=== PATIENT | female | born 1950 | race Caucasian/White ===

== ENCOUNTER 2017-11-14 17:34 | Inpatient (IN) | payer MEDICARE ==
[2017-11-14] MEDS ORDERED: Zofran 4 MG/2 ML VIAL IV ONE (18:05)
[2017-11-14] MEDS ORDERED: Sodium Chloride 0.9% 1000 ML 1,000 ML IV STA (18:05)
--- NOTE | 2017-11-14 18:21 | ERPHSYRPT ---
- History of Present Illness Time Seen by Provider: 11/14/17 18:10 Source: patient Exam Limitations: no limitations Patient Subjective Stated Complaint: pt states she has had vomiting and diarrhea for the past 5 days. states she last vomited last pm and had diarrhea last pm. Triage Nursing Assessment: Pt pink, warm, dry. Abdomen obese, bowel sounds present in all 4 quads. pt afebrile. Physician History: Pt has been c/o nausea, vomiting, congestion, cough and diarrhea for 5 days. She felt chills and fever, did not take her temperature, denies bloody or black diarrhea, no abdominal or chest pain, no severe headaches or other complaints. Timing/Duration: day(s) (5) Severity: mild Modifying Factors: Improves With: nothing Associated Symptoms: nausea, vomiting, cough, fever, loss of appetite Allergies/Adverse Reactions: Iodinated Contrast- Oral and IV Dye Allergy (Verified 11/14/17 17:57) Penicillins Allergy (Verified 11/14/17 17:57) Home Medications: Fluticasone Propionate [Flonase NASAL] 1 spray INTRANASAL DAILY 11/14/17 [ History] Latanoprost [Latanoprost] 1 drop INTRAOP BID 11/14/17 [History] Lisinopril/Hydrochlorothiazide [Lisinopril-Hctz 20-12.5 mg Tab] 1 tab PO BID [History] Hx Tetanus, Diphtheria Vaccination/Date Given: Yes (unknown) Hx Influenza Vaccination/Date Given: Yes Hx Pneumococcal Vaccination/Date Given: Yes Immunizations Up to Date: Yes - Review of Systems Constitutional: Fever, Chills Respiratory: Cough Abdominal/Gastrointestinal: Nausea, Vomiting, Diarrhea All Other Systems: Reviewed and Negative - Past Medical History Pertinent Past Medical History: Yes Cardiac History: Hypertension - Past Surgical History Past Surgical History: Yes Gastrointestinal: Cholecystectomy Female Surgical History: Hysterectomy, Other - Social History Smoking Status: Never smoker Exposure to second hand smoke: No Drug Use: none Patient Lives Alone: No - Female History Hx Now: No - Nursing Vital Signs Nursing Vital Signs: Initial Vital Signs Temperature 98.4 F 11/14/17 17:52 Pulse Rate 99 H 11/14/17 17:52 Respiratory Rate 20 11/14/17 17:52 Blood Pressure 139/82 11/14/17 17:52 O2 Sat by Pulse Oximetry 99 01/18/18 17:52 Pain Scale Pain Intensity 0 - Physical Exam General Appearance: no apparent distress Eye Exam: eyes nml inspection Ears, Nose, Throat Exam: normal ENT inspection, pharynx normal Neck Exam: normal inspection, non-tender, supple Respiratory Exam: normal breath sounds, lungs clear, airway intact, No chest tenderness Cardiovascular Exam: regular rate/rhythm, normal heart sounds, normal peripheral pulses, No murmur Gastrointestinal/Abdomen Exam: soft, normal bowel sounds, No tenderness, No distention, No mass, No guarding Back Exam: normal inspection, No CVA tenderness Extremity Exam: normal inspection Neurologic Exam: alert, oriented x 3 Skin Exam: normal color, warm, dry, No rash Lymphatic Exam: No adenopathy SpO2 Interpretation: normal SpO2: 99 Oxygen Delivery: Room Air - Radiology Exams Chest X-ray Interpretation: Interpreted by me, Negative Abdomen X-ray Interpretation: Interpreted by me, Negative Ordered Tests: Active Orders 24 hr Category Date Time Status Up With Assistance ROUTINE Activity 11/14/17 19:59 Ordered Admission/Status Order ROUTINE Care 11/14/17 19:59 Ordered Code Status Order ROUTINE Care 11/14/17 19:59 Ordered IV Care Q6H Care 11/14/17 19:59 Ordered IV Insertion STAT Care 11/14/17 18:05 Active cath [Cath for Specimen-Straight] STAT Care 11/14/17 18:44 Active Clear Liquid Diet 11/14/17 Breakfast Ordered OBSTR/ACUTE ABDOMEN SERIES Stat Exams 11/14/17 18:07 Taken BMP AM.LAB Lab 11/15/17 04:00 Ordered CBC W DIFF AM.LAB Lab 11/15/17 04:00 Ordered CBC W DIFF Stat Lab 11/14/17 18:19 Completed CMP Stat Lab 11/14/17 18:19 Completed LIPASE Stat Lab 11/14/17 18:19 Completed Lactic Acid Stat Lab 11/14/17 18:36 Completed Occult Blood,Stool Other Stat Lab 11/14/17 18:05 Uncollected UA W/ MICROSCOPIC Stat Lab 11/14/17 18:45 Completed Medication Summary Discontinued Medications Generic Name Dose Route Start Last Admin Trade Name Freq PRN Reason Stop Dose Admin Sodium Chloride 1,000 mls @ 999 mls/hr 11/14/17 18:05 11/14/17 18:35 Sodium Chloride 0.9% 1000 Ml IV 11/14/17 19:05 999 mls/hr .Q1H1M STA Administration Sodium Chloride Confirm 11/14/17 18:34 Sodium Chloride 0.9% 1000 Ml Administered 11/14/17 18:35 Dose 1,000 mls @ ud .ROUTE .STK-MED ONE Metronidazole 500 mg 11/14/17 19:51 11/14/17 19:55 Flagyl 500 Mg PO 11/14/17 19:52 500 mg STAT ONE Administration Metronidazole Confirm 11/14/17 19:54 Flagyl 500 Mg Administered 11/14/17 19:55 Dose 500 mg .ROUTE .STK-MED ONE Ondansetron HCl 4 mg 11/14/17 18:05 11/14/17 18:35 Zofran 4 Mg/2 Ml Vial IV 11/14/17 18:06 4 mg STAT ONE Administration Ondansetron HCl Confirm 11/14/17 18:34 Zofran 4 Mg/2 Ml Vial Administered 11/14/17 18:35 Dose 4 mg .ROUTE .STK-MED ONE Lab/Rad Data: Laboratory Result Diagrams 11/14/17 18:19 11/14/17 18:19 Laboratory Results 11/14/17 11/14/17 11/14/17 Range/Units 18:45 18:36 18:19 WBC (4.0-10.5) K/mm3 RBC (4.1-5.4) M/mm3 Hgb (12.0-16.0) gm/dl Hct (35-47) % MCV (78-100) fl MCH (26-32) pg MCHC (32-36) g/dl RDW (11.5-14.0) % Plt Count (150-450) K/mm3 MPV (6-9.5) fl Gran % (36.0-66.0) % Lymphocytes % (24.0-44.0) % Monocytes % (0.0-12.0) % Eosinophils % (0.00-5.0) % Basophils % (0.0-0.4) % Basophils # (0-0.4) Sodium (136-145) mEq/L Potassium (3.5-5.1) mEq/L Chloride (98-107) mEq/L Carbon Dioxide (21-32) mEq/L Anion Gap (5-15) MEQ/L BUN (9-20) mg/dL Creatinine (0.55-1.30) mg/dl Estimated GFR ML/MIN Glucose (70-110) MG/DL Lactic Acid 1.4 (0.4-2.0) Calcium (8.5-10.1) mg/dL Total Bilirubin (0.2-1.0) mg/dL AST (15-37) U/L ALT (12-78) U/L Alkaline Phosphatase (46-116) U/L Serum Total Protein (6.4-8.2) gm/dL Albumin (3.4-5.0) g/dL Lipase (73-393) U/L Ur Collection Type CATH Urine Color YELLOW (YELLOW) Urine Appearance CLEAR (CLEAR) Urine pH 5.0 (5-6) Ur Specific [place] 1.020 (1.005-1.025) Urine Protein TRACE (Negative) Urine Ketones NEGATIVE (NEGATIVE) Urine Blood NEGATIVE (0-5) Onofre/ul Urine Nitrite NEGATIVE (NEGATIVE) Urine Bilirubin NEGATIVE (NEGATIVE) Urine Urobilinogen NORMAL (0-1) mg/dL Ur Leukocyte Esterase NEGATIVE (NEGATIVE) Urine Microscopic WBC 0-2 (0-5) /HPF Ur Epithelial Cells RARE (FEW) /HPF Urine Bacteria FEW (NEGATIVE) /HPF Hyaline Casts 0-2 (0-2) /LPF Urine Culture Reflexed NO (NO) Urine Glucose NEGATIVE (NEGATIVE) mg/dL Influenza Type A Ag NEGATIVE (NEGATIVE) Influenza Type B Ag NEGATIVE (NEGATIVE) RSV (PCR) NEGATIVE (Negative) Specimen Received 11-14-17 0671 11/14/17 11/14/17 Range/Units 18:19 18:19 WBC 10.2 (4.0-10.5) K/mm3 RBC 3.51 L (4.1-5.4) M/mm3 Hgb 10.5 L (12.0-16.0) gm/dl Hct 33.0 L (35-47) % MCV 94.0 (78-100) fl MCH 29.9 (26-32) pg MCHC 31.8 L (32-36) g/dl RDW 12.9 (11.5-14.0) % Plt Count 317 (150-450) K/mm3 MPV 11.4 H (6-9.5) fl Gran % 82.8 H (36.0-66.0) % Lymphocytes % 9.3 L (24.0-44.0) % Monocytes % 7.1 (0.0-12.0) % Eosinophils % 0.6 (0.00-5.0) % Basophils % 0.2 (0.0-0.4) % Basophils # 0.02 (0-0.4) Sodium 140 (136-145) mEq/L Potassium 4.5 (3.5-5.1) mEq/L Chloride 108 H (98-107) mEq/L Carbon Dioxide 17.1 L (21-32) mEq/L Anion Gap 19.1 H (5-15) MEQ/L BUN 84 H (9-20) mg/dL Creatinine 3.25 H (0.55-1.30) mg/dl Estimated GFR 15 ML/MIN Glucose 126 H (70-110) MG/DL Lactic Acid (0.4-2.0) Calcium 11.1 H (8.5-10.1) mg/dL Total Bilirubin 0.50 (0.2-1.0) mg/dL AST 14 L (15-37) U/L ALT 13 (12-78) U/L Alkaline Phosphatase 66 (46-116) U/L Serum Total Protein 7.8 (6.4-8.2) gm/dL Albumin 3.9 (3.4-5.0) g/dL Lipase 234 (73-393) U/L Ur Collection Type Urine Color (YELLOW) Urine Appearance (CLEAR) Urine pH (5-6) Ur Specific [place] (1.005-1.025) Urine Protein (Negative) Urine Ketones (NEGATIVE) Urine Blood (0-5) Onofre/ul Urine Nitrite (NEGATIVE) Urine Bilirubin (NEGATIVE) Urine Urobilinogen (0-1) mg/dL Ur Leukocyte Esterase (NEGATIVE) Urine Microscopic WBC (0-5) /HPF Ur Epithelial Cells (FEW) /HPF Urine Bacteria (NEGATIVE) /HPF Hyaline Casts (0-2) /LPF Urine Culture Reflexed (NO) Urine Glucose (NEGATIVE) mg/dL Influenza Type A Ag (NEGATIVE) Influenza Type B Ag (NEGATIVE) RSV (PCR) (Negative) Specimen Received - Progress Progress: improved Progress Note: 11/14/17 20:02 Pt has been stable, afebrile, no fever or vomiting, denies any pain, comfortable. X ray and lab results discussed, called Dr Matthews, discussed our results and patient's current condition, he agreed to admit her for further iv fluids, and treatment, patient and her family informed, they agreed. - Departure Time of Disposition: 20:03 Departure Disposition: In-patient Admission Clinical Impression: Acute renal failure (ARF) Qualifiers: Acute renal failure type: unspecified Qualified Code(s): N17.9 - Acute kidney failure, unspecified Condition: Stable Critical Care Time: Yes Critical Care Time(excluding separately billable procedures): 30-74 minutes ( Kidney failure, hemodynamically stable.) Referrals: ZULMA LOGAN NP [Primary Care Provider] -
[2017-11-14 18:23] LABS: BASOPHIL % 0.2 % (0.0-0.4); Basophil (Absolute #) 0.02 (0-0.4); Eosinophil % 0.6 % (0.00-5.0); Eosinophil (Absolute #) 0.06 (0-0.5); Granulocyte Absolute (ANC) 8.42 (1.4-6.9); Granulocytes % 82.8 % (36.0-66.0); Hemoglobin 10.5 gm/dl (12.0-16.0); Lymphocyte (Absolute #) 0.94 (1.0-4.6); Lymphocytes % 9.3 % (24.0-44.0); Mean Corpuscular Hemoglobin 29.9 pg (26-32); Mean Corpuscular Hgb Concent. 31.8 g/dl (32-36); Mean Platelet Volume 11.4 fl (6-9.5); Monocyte (Absolute #) 0.72 (0.0-1.3); Monocytes % 7.1 % (0.0-12.0); Platelet Count 317 K/mm3 (150-450); Red Blood Count 3.51 M/mm3 (4.1-5.4); Red Cell Distribution Width 12.9 % (11.5-14.0); White Blood Count 10.2 K/mm3 (4.0-10.5)
[2017-11-14] MEDS ORDERED: Zofran 4 MG/2 ML VIAL ONE (18:34)
[2017-11-14] MEDS ORDERED: Sodium Chloride 0.9% 1000 ML 1,000 ML ONE (18:34)
[2017-11-14 18:43] LABS: ALBUMIN 3.9 g/dL (3.4-5.0); ANION GAP 19.1 MEQ/L (5-15); BILIRUBIN,TOTAL 0.5 mg/dL (0.2-1.0); Calcium 11.1 mg/dL (8.5-10.1); Carbon Dioxide 17.1 mEq/L (21-32); Creatinine 1 3.25 mg/dl (0.55-1.30); Potassium 4.5 mEq/L (3.5-5.1); Total Protein 7.8 gm/dL (6.4-8.2)
[2017-11-14 19:01] LABS: Appearance CLEAR (CLEAR); Bilirubin NEGATIVE (NEGATIVE); Blood NEGATIVE Ery/ul (0-5); Glucose NEGATIVE (NEGATIVE); Ketones NEGATIVE (NEGATIVE); Leukocyte Esterase NEGATIVE (NEGATIVE); Nitrite NEGATIVE (NEGATIVE); Protein,Urine Dip TRACE (Negative); Urobilinogen NORMAL mg/dL (0-1); WBC 0-2 /HPF (0-5)
[2017-11-14 19:02] LABS: Bacteria FEW /HPF (NEGATIVE); Epithelial Cells RARE /HPF (FEW); Hyaline Casts 0-2 /LPF (0-2)
[2017-11-14 19:25] LABS: INFLUENZA A NEGATIVE (NEGATIVE); INFLUENZA B NEGATIVE (NEGATIVE); RESPIRATORY SYNCTIAL VIRUS NEGATIVE (Negative)
[2017-11-14] MEDS ORDERED: Flagyl 500 MG PO ONE (19:51)
[2017-11-14] MEDS ORDERED: Flagyl 500 MG ONE (19:54)
[2017-11-14] MEDS ORDERED: Zofran 4 MG/2 ML VIAL IV PRN (19:59)
[2017-11-14] MEDS ORDERED: Xalatan OP SCH (22:00)
[2017-11-14] MEDS ORDERED: COSOPT OPHTHALMIC 10 ML OP SCH (22:00)
[2017-11-14] MEDS: Sodium Chloride 0.9% 1000 ML 1,000 ML IV SCH (22:55)
[2017-11-14] MEDS ORDERED: TIMOPTIC 0.5% 5 ML OPHTHALMIC OP ONE (22:58)
[2017-11-15 01:58] LABS: 027 TOX PROD PRESUMPTIVE NEGATIVE (NEGATIVE); TOXIGENIC C. DIFF ORG NEGATIVE (NEGATIVE)
[2017-11-15 06:17] LABS: BASOPHIL % 0.2 % (0.0-0.4); Basophil (Absolute #) 0.02 (0-0.4); Eosinophil % 0.8 % (0.00-5.0); Eosinophil (Absolute #) 0.08 (0-0.5); Granulocyte Absolute (ANC) 7.84 (1.4-6.9); Granulocytes % 78.8 % (36.0-66.0); Hematocrit 29.9 % (35-47); Hemoglobin 9.4 gm/dl (12.0-16.0); Lymphocyte (Absolute #) 1.11 (1.0-4.6); Lymphocytes % 11.2 % (24.0-44.0); Mean Cell Volume 95.2 fl (78-100); Mean Corpuscular Hemoglobin 29.9 pg (26-32); Mean Corpuscular Hgb Concent. 31.4 g/dl (32-36); Mean Platelet Volume 11.5 fl (6-9.5); Platelet Count 259 K/mm3 (150-450); Red Blood Count 3.14 M/mm3 (4.1-5.4)
[2017-11-15 07:01] LABS: ANION GAP 17.9 MEQ/L (5-15); Calcium 10.6 mg/dL (8.5-10.1); Carbon Dioxide 17.7 mEq/L (21-32); Creatinine 1 3.06 mg/dl (0.55-1.30)
[2017-11-15] MEDS ORDERED: COSOPT OPHTHALMIC 10 ML OP SCH (08:00)
[2017-11-15] MEDS ORDERED: DESYREL 50 MG PO PRN (08:10)
[2017-11-15] MEDS: Sodium Chloride 0.9% 1000 ML 1,000 ML IV SCH (08:11)
--- NOTE | 2017-11-15 08:15 | PCM.HP ---
History of Present Illness - Chief Complaint Chief Complaint: vomiting, acute renal failure History of Present Illness: is a 67 year old female who reported to the ER with persistent nausea, vomiting and diarrhea for the last 5 days. She denies fever, no recent antibiotic use, no abdominal pain. She was found to have acute renal failure in the ER, believed to be related to dehydration. No prior renal issues. She also complains of right foot pain today, having problems walking due to foot pain. Stepped on something hard in her home a few days ago. No erythema, no calf pain , hurts to bear weight. - Review of Systems Constitutional: No Fever, No Chills Respiratory: No Cough, No Short Of Breath Cardiac: No Chest Pain, No Edema, No Syncope Abdominal/Gastrointestinal: Nausea, Vomiting, Diarrhea, No Abdominal Pain Genitourinary Symptoms: No Dysuria Skin: No Rash All Other Systems: Reviewed and Negative Medications & Allergies Home Medications: Home Medication List Fluticasone Propionate [Flonase NASAL] 1 spray INTRANASAL DAILY 11/14/17 [ History Confirmed 11/14/17] Furosemide [Furosemide] 40 mg PO DAILY 11/14/17 [History Confirmed 11/14/17] Latanoprost [Latanoprost] 1 drop INTRAOP HS 11/14/17 [History Confirmed 11/15/17 ] Lisinopril/Hydrochlorothiazide [Lisinopril-Hctz 20-12.5 mg Tab] 1 tab PO BID [History Confirmed 11/14/17] Timolol Maleate/Dorzolam HCl [Cosopt Ophthalmic 10 ml] 1 drop INTRAOP BID 11/14/17 [History Confirmed 11/14/17] Allergies/Adverse Reactions: Allergies Allergy/AdvReac Type Severity Reaction Status Date / Time Iodinated Contrast- Oral and Allergy Verified 11/14/17 17:57 IV Dye Penicillins Allergy Verified 11/14/17 17:57 - Past Medical History Past Medical History: Yes Neurological History: No Pertinent History ENT History: Glaucoma Cardiac History: Hypertension Respiratory History: No Pertinent History Endocrine Medical History: No Pertinent History Musculoskelatal History: No Pertinent History GI Medical History: No Pertinent History History: No Pertinent History Pyscho-Social History: No Pertinent History Reproductive Disorders: No Pertinent History - Female History Are you now?: No - Past Surgical History Past Surgical History: Yes Cardiac History: No Pertinent History Respiratory Surgery: No Pertinent History GI Surgical History: Appendectomy, Cholecystectomy Musculskeletal Surgical Hx: No Pertinent History Female Surgical History: Hysterectomy, Other Other Surgical History: exploratory surgery appendix leaking - Social History Smoking Status: Never smoker Exposure to second hand smoke: No Alcohol: None Drug Use: none - Physical Exam Vital Signs: Vital Signs - 24 hr Temp Pulse Resp BP Pulse Ox 11/15/17 08:00 20 11/15/17 07:49 98 F 74 20 120/64 96 11/15/17 04:00 98.4 F 76 17 121/58 99 11/14/17 22:02 97.8 F 75 18 129/62 99 11/14/17 20:04 99 11/14/17 20:03 79 18 108/61 96 11/14/17 18:45 78 18 125/74 98 11/14/17 17:52 98.4 F 99 H 20 139/82 99 General Appearance: no apparent distress, alert Neurologic Exam: alert, oriented x 3 Eye Exam: PERRL/EOMI Neck Exam: normal inspection, non-tender, supple, full range of motion Respiratory Exam: normal breath sounds, lungs clear, No respiratory distress Cardiovascular Exam: regular rate/rhythm, normal heart sounds, normal peripheral pulses Gastrointestinal/Abdomen Exam: soft, normal bowel sounds, No tenderness, No mass Extremity Exam: normal inspection, normal range of motion, pelvis stable Skin Exam: normal color, warm, dry, No rash Results - Labs Lab/Micro Results: Lab Results-Last 24 Hours 11/14/17 11/14/17 11/15/17 Range/Units 23:25 23:30 05:30 WBC 10.0 (4.0-10.5) K/mm3 RBC 3.14 L (4.1-5.4) M/mm3 Hgb 9.4 L (12.0-16.0) gm/dl Hct 29.9 L (35-47) % MCV 95.2 (78-100) fl MCH 29.9 (26-32) pg MCHC 31.4 L (32-36) g/dl RDW 13.0 (11.5-14.0) % Plt Count 259 (150-450) K/mm3 MPV 11.5 H (6-9.5) fl Gran % 78.8 H (36.0-66.0) % Lymphocytes % 11.2 L (24.0-44.0) % Monocytes % 9.0 (0.0-12.0) % Eosinophils % 0.8 (0.00-5.0) % Basophils % 0.2 (0.0-0.4) % Basophils # 0.02 (0-0.4) Sodium (136-145) mEq/L Potassium (3.5-5.1) mEq/L Chloride (98-107) mEq/L Carbon Dioxide (21-32) mEq/L Anion Gap (5-15) MEQ/L BUN (9-20) mg/dL Creatinine (0.55-1.30) mg/dl Estimated GFR ML/MIN Glucose (70-110) MG/DL Calcium (8.5-10.1) mg/dL Stool Occult Blood NEGATIVE (Negative) Stl C. diff Tox B Gene NEGATIVE (NEGATIVE) C.difficile 027-NAP1-B1 PRESUMPTIVE NEGATIVE (NEGATIVE) 11/15/17 Range/Units 05:30 WBC (4.0-10.5) K/mm3 RBC (4.1-5.4) M/mm3 Hgb (12.0-16.0) gm/dl Hct (35-47) % MCV (78-100) fl MCH (26-32) pg MCHC (32-36) g/dl RDW (11.5-14.0) % Plt Count (150-450) K/mm3 MPV (6-9.5) fl Gran % (36.0-66.0) % Lymphocytes % (24.0-44.0) % Monocytes % (0.0-12.0) % Eosinophils % (0.00-5.0) % Basophils % (0.0-0.4) % Basophils # (0-0.4) Sodium 142 (136-145) mEq/L Potassium 4.0 (3.5-5.1) mEq/L Chloride 110 H (98-107) mEq/L Carbon Dioxide 17.7 L (21-32) mEq/L Anion Gap 17.9 H (5-15) MEQ/L BUN 77 H (9-20) mg/dL Creatinine 3.06 H (0.55-1.30) mg/dl Estimated GFR 16 ML/MIN Glucose 104 (70-110) MG/DL Calcium 10.6 H (8.5-10.1) mg/dL Stool Occult Blood (Negative) Stl C. diff Tox B Gene (NEGATIVE) C.difficile 027-NAP1-B1 (NEGATIVE) - Radiology Impressions Radiology Exams & Impressions: Radiology Procedures Category Date Time Status FOOT (2 VIEWS) Routine Exams 11/15/17 Ordered Assessment/Plan (1) Acute renal failure (ARF) Current Visit: Yes Status: Acute Qualifiers: Acute renal failure type: unspecified Qualified Code(s): N17.9 - Acute kidney failure, unspecified Assessment & Plan: minimal improvement with fluids overnight, hasn't been her long (2) Nausea and vomiting Current Visit: Yes Status: Acute Assessment & Plan: resolved with fluids and anti-emetics at this time Code(s): R11.2 - NAUSEA WITH VOMITING, UNSPECIFIED (3) Diarrhea Current Visit: Yes Status: Acute Assessment & Plan: stool studies pending. Code(s): R19.7 - DIARRHEA, UNSPECIFIED (4) Foot pain, right Current Visit: Yes Status: Acute Code(s): M79.671 - PAIN IN RIGHT FOOT
--- NOTE | 2017-11-15 08:39 | XRAY ---
Indication: Pain 1 week. No known injury. Comparison: None AP and weightbearing right foot demonstrates mild osteopenia, small proximal fifth metatarsal bone cyst, and small plantar heel spur. No acute fracture, dislocation, or pes planus.
--- NOTE | 2017-11-15 08:44 | XRAY ---
Indication: Vomiting, diarrhea, and flu symptoms. Comparison: None 2 views of the abdomen nonacute and nonobstructed. Solid organs unremarkable. Osseous structures intact with mild diffuse degenerative spondylosis. Single frontal chest demonstrates normal heart and lungs. Bony thorax intact with minimal scoliosis. Impression: Negative abdomen. Nonacute one view chest.
[2017-11-15] MEDS: Pepcid 20 MG VIAL IV SCH ×2 (08:51→21:46)
[2017-11-15] MEDS: Flonase NASAL NS SCH (09:08)
[2017-11-15] MEDS ORDERED: IMODIUM 2 MG PO PRN (13:32)
[2017-11-15] MEDS: NORCO 5/325 MG PO PRN ×2 (13:47→21:53)
[2017-11-15] MEDS: PATIENT OWN MEDICATION OP SCH ×2 (17:57→21:49)
[2017-11-15] MEDS ORDERED: Xalatan OP SCH (22:00)
[2017-11-16] MEDS: NORCO 5/325 MG PO PRN ×3 (03:14→17:53)
[2017-11-16] MEDS: Sodium Chloride 0.9% 1000 ML 1,000 ML IV SCH (03:15)
[2017-11-16 06:13] LABS: BASOPHIL % 0.3 % (0.0-0.4); Basophil (Absolute #) 0.02 (0-0.4); Eosinophil % 1.6 % (0.00-5.0); Eosinophil (Absolute #) 0.11 (0-0.5); Granulocyte Absolute (ANC) 5.03 (1.4-6.9); Granulocytes % 72.9 % (36.0-66.0); Hematocrit 27.6 % (35-47); Hemoglobin 8.6 gm/dl (12.0-16.0); Lymphocyte (Absolute #) 1.11 (1.0-4.6); Lymphocytes % 16.1 % (24.0-44.0); Mean Cell Volume 95.8 fl (78-100); Mean Corpuscular Hgb Concent. 31.2 g/dl (32-36); Mean Platelet Volume 11.2 fl (6-9.5); Monocyte (Absolute #) 0.63 (0.0-1.3); Monocytes % 9.1 % (0.0-12.0); Platelet Count 220 K/mm3 (150-450); Red Blood Count 2.88 M/mm3 (4.1-5.4); White Blood Count 6.9 K/mm3 (4.0-10.5)
[2017-11-16 06:26] LABS: Mean Corpuscular Hemoglobin 29.8 pg (26-32)
[2017-11-16 07:03] LABS: Calcium 10.2 mg/dL (8.5-10.1); Carbon Dioxide 18.4 mEq/L (21-32); Creatinine 1 2.55 mg/dl (0.55-1.30); Potassium 3.7 mEq/L (3.5-5.1)
[2017-11-16] MEDS: PATIENT OWN MEDICATION OP SCH ×3 (07:59→22:06)
[2017-11-16] MEDS: Pepcid 20 MG VIAL IV SCH ×2 (09:18→21:54)
[2017-11-16] MEDS: Flonase NASAL NS SCH (09:19)
[2017-11-16] MEDS ORDERED: Sodium Chloride 0.9% 1000 ML 1,000 ML IV STA (12:57)
--- NOTE | 2017-11-16 14:55 | PCM.NOTE ---
Date and Time: 11/16/17 1452 Subjective Assessment: No diarrhea this morning. Having some nausea. Tolerating CLD. Denies abd pain. Has been urinating. - Review of Systems Constitutional: No Fever Abdominal/Gastrointestinal: Nausea, No Abdominal Pain, No Vomiting, No Diarrhea Objective Exam General Appearance: no apparent distress, alert, obese Neurologic Exam: oriented x 3, cooperative Skin Exam: normal color, warm, dry, No rash Respiratory Exam: normal breath sounds, No crackles/rales, No rhonchi, No wheezing Cardiovascular Exam: regular rate/rhythm, other (heart sounds distant) Gastrointestinal/Abdomen Exam: soft, normal bowel sounds, No tenderness, No distention, No mass, No guarding, No rebound Extremity Exam: other (RLE edematous generally, ttp generalized. R great toe mild erythema.) OBJECTIVE DATA Vital Signs: Vital Signs - 24 hr Temp Pulse Resp BP Pulse Ox 11/16/17 12:00 97.6 F 68 20 132/63 100 11/16/17 07:57 98.2 F 73 24 127/59 99 11/16/17 07:55 20 11/16/17 04:00 98.6 F 69 24 116/59 99 11/15/17 23:54 98.1 F 69 18 110/54 100 11/15/17 20:00 97.9 F 68 20 90/50 99 11/15/17 15:52 18 11/15/17 15:28 97.6 F 78 18 118/67 97 Pain Assessment - Last Documented Pain Intensity 10 Pain Scale Used 0-10 Pain Scale Intake and Output: Intake & Output 11/14/17 11/15/17 11/16/17 11/17/17 11:59 11:59 11:59 11:59 Intake Total 1286 5164 720 Output Total 650 2000 Balance 636 3164 720 Weight 130 kg 130 kg Lab Results: Lab Results-Last 24 Hours 11/16/17 11/16/17 Range/Units 05:50 05:50 WBC 6.9 (4.0-10.5) K/mm3 RBC 2.88 L (4.1-5.4) M/mm3 Hgb 8.6 L (12.0-16.0) gm/dl Hct 27.6 L (35-47) % MCV 95.8 (78-100) fl MCH 29.8 (26-32) pg MCHC 31.2 L (32-36) g/dl RDW 13.0 (11.5-14.0) % Plt Count 220 (150-450) K/mm3 MPV 11.2 H (6-9.5) fl Gran % 72.9 H (36.0-66.0) % Lymphocytes % 16.1 L (24.0-44.0) % Monocytes % 9.1 (0.0-12.0) % Eosinophils % 1.6 (0.00-5.0) % Basophils % 0.3 (0.0-0.4) % Basophils # 0.02 (0-0.4) Sodium 142 (136-145) mEq/L Potassium 3.7 (3.5-5.1) mEq/L Chloride 113 H (98-107) mEq/L Carbon Dioxide 18.4 L (21-32) mEq/L Anion Gap 14.0 (5-15) MEQ/L BUN 62 H (9-20) mg/dL Creatinine 2.55 H (0.55-1.30) mg/dl Estimated GFR 20 ML/MIN Glucose 101 (70-110) MG/DL Calcium 10.2 H (8.5-10.1) mg/dL Radiology Exams: Radiology Procedures Category Date Time Status FOOT (2 VIEWS) Routine Exams 11/15/17 08:30 Completed Assessment/Plan (1) Acute renal failure (ARF) Current Visit: Yes Status: Acute Qualifiers: Acute renal failure type: unspecified Qualified Code(s): N17.9 - Acute kidney failure, unspecified Assessment & Plan: some improvement this morning. Will go ahead with NS bolus now and in 4 hours and will recheck labs in a.m. If no appreciable improvement will consult nephrology then. (2) Dehydration Current Visit: Yes Status: Acute Code(s): E86.0 - DEHYDRATION (3) Diarrhea Current Visit: Yes Status: Acute Assessment & Plan: shira had some gastroenteritis but no diarrhea yet today. Code(s): R19.7 - DIARRHEA, UNSPECIFIED (4) Foot pain, right Current Visit: Yes Status: Acute Assessment & Plan: check uric acid level; her dad had gout. Code(s): M79.671 - PAIN IN RIGHT FOOT (5) Nausea and vomiting Current Visit: Yes Status: Acute Qualifiers: Vomiting type: unspecified Vomiting Intractability: non-intractable Qualified Code(s): R11.2 - Nausea with vomiting, unspecified Assessment & Plan: nausea is intermittent Code(s): R11.2 - NAUSEA WITH VOMITING, UNSPECIFIED
[2017-11-16] MEDS ORDERED: PHARMACY DOSING REQUEST MC ONE (17:57)
[2017-11-16] MEDS ORDERED: ENOXAPARIN SODIUM SQ ONE (18:26)
[2017-11-17] MEDS: Sodium Chloride 0.9% 1000 ML 1,000 ML IV SCH ×3 (00:57→22:12)
[2017-11-17] MEDS: NORCO 5/325 MG PO PRN ×3 (03:39→22:11)
[2017-11-17] MEDS: Pepcid 20 MG VIAL IV SCH ×2 (08:39→22:12)
[2017-11-17] MEDS: ENOXAPARIN SODIUM SQ SCH (08:40)
[2017-11-17] MEDS: PATIENT OWN MEDICATION OP SCH ×3 (08:42→22:08)
[2017-11-17] MEDS: Flonase NASAL NS SCH (08:42)
[2017-11-17] MEDS: DELTASONE 20 MG PO SCH ×2 (13:29→22:19)
[2017-11-17 14:14] LABS: ANION GAP 14.2 MEQ/L (5-15); Calcium 9.8 mg/dL (8.5-10.1); Carbon Dioxide 18.4 mEq/L (21-32); Creatinine 1 2.18 mg/dl (0.55-1.30); Potassium 3.8 mEq/L (3.5-5.1)
[2017-11-17 14:20] LABS: BASOPHIL % 0.1 % (0.0-0.4); Basophil (Absolute #) 0.01 (0-0.4); Eosinophil % 1.3 % (0.00-5.0); Eosinophil (Absolute #) 0.09 (0-0.5); Granulocyte Absolute (ANC) 5.57 (1.4-6.9); Granulocytes % 79.1 % (36.0-66.0); Hematocrit 27.5 % (35-47); Hemoglobin 8.3 gm/dl (12.0-16.0); Lymphocyte (Absolute #) 0.68 (1.0-4.6); Lymphocytes % 9.6 % (24.0-44.0); Mean Cell Volume 96.8 fl (78-100); Mean Corpuscular Hemoglobin 29.2 pg (26-32); Mean Corpuscular Hgb Concent. 30.2 g/dl (32-36); Mean Platelet Volume 11.5 fl (6-9.5); Monocytes % 9.9 % (0.0-12.0); Platelet Count 221 K/mm3 (150-450); Red Blood Count 2.84 M/mm3 (4.1-5.4); Red Cell Distribution Width 13.1 % (11.5-14.0); White Blood Count 7.1 K/mm3 (4.0-10.5)
--- NOTE | 2017-11-17 15:49 | PCM.NOTE ---
Date and Time: 11/17/17 1544 Subjective Assessment: Feeling better, having a little nausea but no diarrhea. Her uric acid was elevated. - Review of Systems Constitutional: No Fever Abdominal/Gastrointestinal: Nausea Musculoskeletal: Joint Pain (R great toe) Objective Exam General Appearance: no apparent distress, alert, obese Neurologic Exam: oriented x 3, cooperative Skin Exam: normal color, warm, dry, No rash Respiratory Exam: normal breath sounds, lungs clear, No crackles/rales, No rhonchi, No wheezing Cardiovascular Exam: regular rate/rhythm, normal heart sounds, No murmur Extremity Exam: other (R great toe mildly edematous and erythematous) OBJECTIVE DATA Vital Signs: Vital Signs - 24 hr Temp Pulse Resp BP Pulse Ox 11/17/17 12:00 98.3 F 75 20 116/56 100 11/17/17 08:00 97.7 F 92 H 18 140/72 95 11/17/17 04:00 22 11/17/17 03:39 98.3 F 87 22 118/55 100 11/17/17 00:00 98.3 F 77 20 124/64 99 11/16/17 20:00 98.4 F 73 20 97/55 99 11/16/17 16:00 98.1 F 80 22 123/68 100 Pain Assessment - Last Documented Pain Intensity 8 Pain Scale Used 0-10 Pain Scale Intake and Output: Intake & Output 11/15/17 11/16/17 11/17/17 11/18/17 11:59 11:59 11:59 11:59 Intake Total 1286 5164 5773 240 Output Total 650 2000 1600 300 Balance 636 3164 4173 -60 Weight 130 kg 130 kg Lab Results: Lab Results-Last 24 Hours 11/16/17 11/17/17 11/17/17 Range/Units 05:30 13:45 13:45 WBC 7.1 (4.0-10.5) K/mm3 RBC 2.84 L (4.1-5.4) M/mm3 Hgb 8.3 L (12.0-16.0) gm/dl Hct 27.5 L (35-47) % MCV 96.8 (78-100) fl MCH 29.2 (26-32) pg MCHC 30.2 L (32-36) g/dl RDW 13.1 (11.5-14.0) % Plt Count 221 (150-450) K/mm3 MPV 11.5 H (6-9.5) fl Gran % 79.1 H (36.0-66.0) % Lymphocytes % 9.6 L (24.0-44.0) % Monocytes % 9.9 (0.0-12.0) % Eosinophils % 1.3 (0.00-5.0) % Basophils % 0.1 (0.0-0.4) % Basophils # 0.01 (0-0.4) Sodium 141 (136-145) mEq/L Potassium 3.8 (3.5-5.1) mEq/L Chloride 112 H (98-107) mEq/L Carbon Dioxide 18.4 L (21-32) mEq/L Anion Gap 14.2 (5-15) MEQ/L BUN 42 H (9-20) mg/dL Creatinine 2.18 H (0.55-1.30) mg/dl Estimated GFR 24 ML/MIN Glucose 133 H (70-110) MG/DL Uric Acid 11.6 H (2.6-6.0) mg/dL Calcium 9.8 (8.5-10.1) mg/dL Assessment/Plan (1) Acute renal failure (ARF) Current Visit: Yes Status: Acute Qualifiers: Acute renal failure type: unspecified Qualified Code(s): N17.9 - Acute kidney failure, unspecified Assessment & Plan: She may have an element of chronic renal failure - unsure as I can't see any labs in [facility] or [facility] before 2018. Even lab only has a potassium in 2017, no CMP or BMP. The creatinine has improved each day but is still > 2 (2.18 down from 2.55 yesterday). Discussed possibility of nephrology consult - will defer to Dr. Matthews in the a.m. (2) Dehydration Current Visit: Yes Status: Acute Assessment & Plan: improved. Will continue IV fluids. Code(s): E86.0 - DEHYDRATION (3) Gout Current Visit: Yes Status: Acute Qualifiers: Gout site: toe Gout etiology: unspecified cause Chronicity: acute Laterality: right Qualified Code(s): M10.9 - Gout, unspecified Assessment & Plan: Acute on chronic - uric acid is >11. Start prednisone 20mg po BID for now - due to renal insufficiency avoiding NSAIDs. Discussed that she will need allopurinol as maintenance medicine. Code(s): M10.9 - GOUT, UNSPECIFIED (4) Diarrhea Current Visit: Yes Status: Acute Qualifiers: Diarrhea type: unspecified type Qualified Code(s): R19.7 - Diarrhea, unspecified Assessment & Plan: No further diarrhea as yet. Code(s): R19.7 - DIARRHEA, UNSPECIFIED (5) Nausea and vomiting Current Visit: Yes Status: Acute Qualifiers: Vomiting type: unspecified Vomiting Intractability: non-intractable Qualified Code(s): R11.2 - Nausea with vomiting, unspecified Assessment & Plan: improved but still having some nausea. Code(s): R11.2 - NAUSEA WITH VOMITING, UNSPECIFIED (6) Hypertension Current Visit: Yes Status: Acute Qualifiers: Hypertension type: essential hypertension Qualified Code(s): I10 - Essential (primary) hypertension Assessment & Plan: Has been seeing Diana [facility] for tx. Code(s): I10 - ESSENTIAL (PRIMARY) HYPERTENSION
[2017-11-17] MEDS ORDERED: ENOXAPARIN SODIUM SQ SCH (18:30)
[2017-11-18 06:19] LABS: Hematocrit 25.9 % (35-47); Hemoglobin 8.1 gm/dl (12.0-16.0); Mean Cell Volume 95.6 fl (78-100); Mean Corpuscular Hgb Concent. 31.3 g/dl (32-36); Mean Platelet Volume 11.4 fl (6-9.5); Platelet Count 238 K/mm3 (150-450); Red Blood Count 2.71 M/mm3 (4.1-5.4); Red Cell Distribution Width 13.1 % (11.5-14.0)
[2017-11-18 06:38] LABS: Mean Corpuscular Hemoglobin 29.8 pg (26-32)
[2017-11-18 06:48] LABS: ANION GAP 14.9 MEQ/L (5-15); Calcium 10.1 mg/dL (8.5-10.1); Carbon Dioxide 17.1 mEq/L (21-32); Creatinine 1 1.96 mg/dl (0.55-1.30); Potassium 4.3 mEq/L (3.5-5.1)
--- NOTE | 2017-11-18 07:42 | PCM.NOTE ---
Date and Time: 11/18/17 0741 Subjective Assessment: patient tolerating liquids, going to try solid food today. no vomiting or diarrhea, no abd pain Objective Exam General Appearance: no apparent distress, alert Skin Exam: normal color, warm, dry Respiratory Exam: normal breath sounds, lungs clear, No respiratory distress Cardiovascular Exam: regular rate/rhythm, normal heart sounds Gastrointestinal/Abdomen Exam: soft, No tenderness, No mass Extremity Exam: normal inspection, normal range of motion OBJECTIVE DATA Vital Signs: Vital Signs - 24 hr Temp Pulse Resp BP Pulse Ox 11/18/17 06:58 98 F 83 20 119/64 97 11/18/17 04:00 98.3 F 75 20 118/56 99 11/18/17 00:25 98.1 F 87 20 117/65 100 11/18/17 00:00 20 11/17/17 20:00 97.8 F 103 H 22 149/81 99 11/17/17 16:00 98.0 F 80 20 130/61 95 11/17/17 12:00 98.3 F 75 20 116/56 100 11/17/17 08:00 97.7 F 92 H 18 140/72 95 Pain Assessment - Last Documented Pain Intensity 0 Pain Scale [facility] Intake and Output: Intake & Output 11/15/17 11/16/17 11/17/17 11/18/17 11:59 11:59 11:59 11:59 Intake Total 1286 5164 5773 4187 Output Total 650 2000 1600 2000 Balance 636 0744 4173 2187 Weight 130 kg 130 kg Lab Results: Lab Results-Last 24 Hours 11/17/17 11/17/17 11/18/17 Range/Units 13:45 13:45 05:35 WBC 7.1 7.0 (4.0-10.5) K/mm3 RBC 2.84 L 2.71 L (4.1-5.4) M/mm3 Hgb 8.3 L 8.1 L (12.0-16.0) gm/dl Hct 27.5 L 25.9 L (35-47) % MCV 96.8 95.6 (78-100) fl MCH 29.2 29.8 (26-32) pg MCHC 30.2 L 31.3 L (32-36) g/dl RDW 13.1 13.1 (11.5-14.0) % Plt Count 221 238 (150-450) K/mm3 MPV 11.5 H 11.4 H (6-9.5) fl Gran % 79.1 H (36.0-66.0) % Lymphocytes % 9.6 L (24.0-44.0) % Monocytes % 9.9 (0.0-12.0) % Eosinophils % 1.3 (0.00-5.0) % Basophils % 0.1 (0.0-0.4) % Basophils # 0.01 (0-0.4) Sodium 141 (136-145) mEq/L Potassium 3.8 (3.5-5.1) mEq/L Chloride 112 H (98-107) mEq/L Carbon Dioxide 18.4 L (21-32) mEq/L Anion Gap 14.2 (5-15) MEQ/L BUN 42 H (9-20) mg/dL Creatinine 2.18 H (0.55-1.30) mg/dl Estimated GFR 24 ML/MIN Glucose 133 H (70-110) MG/DL Calcium 9.8 (8.5-10.1) mg/dL 11/18/17 Range/Units 05:35 WBC (4.0-10.5) K/mm3 RBC (4.1-5.4) M/mm3 Hgb (12.0-16.0) gm/dl Hct (35-47) % MCV (78-100) fl MCH (26-32) pg MCHC (32-36) g/dl RDW (11.5-14.0) % Plt Count (150-450) K/mm3 MPV (6-9.5) fl Gran % (36.0-66.0) % Lymphocytes % (24.0-44.0) % Monocytes % (0.0-12.0) % Eosinophils % (0.00-5.0) % Basophils % (0.0-0.4) % Basophils # (0-0.4) Sodium 142 (136-145) mEq/L Potassium 4.3 (3.5-5.1) mEq/L Chloride 114 H (98-107) mEq/L Carbon Dioxide 17.1 L (21-32) mEq/L Anion Gap 14.9 (5-15) MEQ/L BUN 35 H (9-20) mg/dL Creatinine 1.96 H (0.55-1.30) mg/dl Estimated GFR 27 ML/MIN Glucose 148 H (70-110) MG/DL Calcium 10.1 (8.5-10.1) mg/dL Assessment/Plan (1) Acute renal failure (ARF) Current Visit: Yes Status: Acute Qualifiers: Acute renal failure type: unspecified Qualified Code(s): N17.9 - Acute kidney failure, unspecified Assessment & Plan: continues to improve with hydration (2) Nausea and vomiting Current Visit: Yes Status: Acute Qualifiers: Vomiting type: unspecified Vomiting Intractability: non-intractable Qualified Code(s): R11.2 - Nausea with vomiting, unspecified Code(s): R11.2 - NAUSEA WITH VOMITING, UNSPECIFIED (3) Diarrhea Current Visit: Yes Status: Acute Qualifiers: Diarrhea type: unspecified type Qualified Code(s): R19.7 - Diarrhea, unspecified Code(s): R19.7 - DIARRHEA, UNSPECIFIED (4) Foot pain, right Current Visit: Yes Status: Acute Assessment & Plan: uric acid elevated, on prednisone Code(s): M79.671 - PAIN IN RIGHT FOOT
[2017-11-18] MEDS: PATIENT OWN MEDICATION OP SCH ×3 (08:36→22:30)
[2017-11-18] MEDS: ENOXAPARIN SODIUM SQ SCH (09:04)
[2017-11-18] MEDS: NORCO 5/325 MG PO PRN ×2 (09:04→22:55)
[2017-11-18] MEDS: DELTASONE 20 MG PO SCH ×2 (09:04→22:26)
[2017-11-18] MEDS: Flonase NASAL NS SCH (09:06)
[2017-11-18] MEDS: Pepcid 20 MG VIAL IV SCH ×2 (09:40→22:27)
[2017-11-19] MEDS: Sodium Chloride 0.9% 1000 ML 1,000 ML IV SCH ×3 (00:09→21:22)
[2017-11-19 05:41] LABS: Granulocyte Absolute (ANC) 5.36 (1.4-6.9); Hematocrit 23.6 % (35-47); Hemoglobin 7.3 gm/dl (12.0-16.0); Mean Cell Volume 96.3 fl (78-100); Mean Corpuscular Hgb Concent. 30.9 g/dl (32-36); Mean Platelet Volume 11.5 fl (6-9.5); Platelet Count 214 K/mm3 (150-450); Red Blood Count 2.45 M/mm3 (4.1-5.4); Red Cell Distribution Width 13.5 % (11.5-14.0); White Blood Count 6.1 K/mm3 (4.0-10.5)
[2017-11-19 06:04] LABS: ANION GAP 14.7 MEQ/L (5-15); Carbon Dioxide 17.5 mEq/L (21-32); Creatinine 1 1.81 mg/dl (0.55-1.30); Potassium 4.3 mEq/L (3.5-5.1)
[2017-11-19 06:11] LABS: Mean Corpuscular Hemoglobin 29.7 pg (26-32)
[2017-11-19 07:08] LABS: BAND 1 % (0.0-2.0); Lymphocytes 4 % (24-44); Metamyelocyte 1 %; Monocyte 6 % (0.0-12.0); Neutrophils 88 % (36.0-66.0); Total Cells Counted 100
[2017-11-19 07:09] LABS: ANISOCYTOSIS 1+; Platelet Estimate NORMAL (NORMAL); Polychromasia RARE
--- NOTE | 2017-11-19 07:35 | PCM.NOTE ---
Date and Time: 11/19/17732 Subjective Assessment: patient tolerating some po at this time. she is drinking well Objective Exam General Appearance: no apparent distress, obese Skin Exam: normal color, warm, dry Eye Exam: PERRL, EOMI, eyes nml inspection Respiratory Exam: normal breath sounds, lungs clear, No respiratory distress Gastrointestinal/Abdomen Exam: soft, No tenderness, No mass OBJECTIVE DATA Vital Signs: Vital Signs - 24 hr Temp Pulse Resp BP Pulse Ox 11/19/17 07:24 98.1 F 86 20 124/78 97 11/19/17 04:00 97.8 F 60 20 116/55 98 11/19/17 00:00 98.4 F 89 22 138/75 98 11/18/17 20:00 98.6 F 72 22 131/63 99 11/18/17 16:11 98.1 F 72 20 128/68 97 11/18/17 12:27 98.3 F 68 20 126/65 96 11/18/17 12:00 20 11/18/17 08:00 20 Pain Assessment - Last Documented Pain Intensity 7 Pain Scale Used [facility] Intake and Output: Intake & Output 11/16/17 11/17/17 11/18/17 11/19/17 11:59 11:59 11:59 11:59 Intake Total 5164 5773 4967 4004 Output Total 1999 9727 2600 3350 Balance 3161 6081 5466 654 Weight 130 kg Lab Results: Lab Results-Last 24 Hours 11/19/17 11/19/17 Range/Units 05:06 05:06 WBC 6.1 (4.0-10.5) K/mm3 RBC 2.45 L (4.1-5.4) M/mm3 Hgb 7.3 L (12.0-16.0) gm/dl Hct 23.6 L (35-47) % MCV 96.3 (78-100) fl MCH 29.7 (26-32) pg MCHC 30.9 L (32-36) g/dl RDW 13.5 (11.5-14.0) % Plt Count 214 (150-450) K/mm3 MPV 11.5 H (6-9.5) fl Segmented Neutrophils 88 H (36.0-66.0) % Band Neutrophils 1 (0.0-2.0) % Lymphocytes (Manual) 4 L (24-44) % Monocytes (Manual) 6 (0.0-12.0) % Metamyelocytes 1 % Differential Comment ABNORMAL Platelet Estimate NORMAL (NORMAL) Polychromasia RARE Anisocytosis 1+ Sodium 142 (136-145) mEq/L Potassium 4.3 (3.5-5.1) mEq/L Chloride 114 H (98-107) mEq/L Carbon Dioxide 17.5 L (21-32) mEq/L Anion Gap 14.7 (5-15) MEQ/L BUN 36 H (9-20) mg/dL Creatinine 1.81 H (0.55-1.30) mg/dl Estimated GFR 30 ML/MIN Glucose 136 H (70-110) MG/DL Calcium 10.0 (8.5-10.1) mg/dL Multi-Disciplinary Progress Notes: Multi-Disciplinary Progress Notes 11/18/17 14:35 Nutrition Note by Tanya Lord F/u Note: Diet advanced to bland today. weight stable. Labs 11/18= BUN 35, Cr 1.96, glu 148, hgb 8.1, hct 25.9. Goals #1) tolerance to solids with ?=50% po intake. Will monitor and f/u prn. TLEXI Mauricio Initialized on 11/18/17 14:35 - END OF NOTE 11/18/17 10:15 (created 11/18/17 14:27) Case Management Note by Karla Serrato CONTINUES TO PLAN FOR RETURN HOME TO PRE EPISODIC LEVEL OF FNX. CAN ASSIST IF NEEDED. DECLINED NEEDS FOR [facility] OR ANY ADD DME. WILL FOLLOW FOR ALL DC NEEDS. Initialized on 11/18/17 14:27 - END OF NOTE Assessment/Plan (1) Acute renal failure (ARF) Current Visit: Yes Status: Acute Qualifiers: Acute renal failure type: unspecified Qualified Code(s): N17.9 - Acute kidney failure, unspecified Assessment & Plan: improving, continue fluids and monitor renal function. no signs of volume overload on exam (2) Nausea and vomiting Current Visit: Yes Status: Acute Qualifiers: Vomiting type: unspecified Vomiting Intractability: non-intractable Qualified Code(s): R11.2 - Nausea with vomiting, unspecified Code(s): R11.2 - NAUSEA WITH VOMITING, UNSPECIFIED (3) Diarrhea Current Visit: Yes Status: Acute Qualifiers: Diarrhea type: unspecified type Qualified Code(s): R19.7 - Diarrhea, unspecified Code(s): R19.7 - DIARRHEA, UNSPECIFIED (4) Foot pain, right Current Visit: Yes Status: Acute Assessment & Plan: xray negative, on prednisone for gout Code(s): M79.671 - PAIN IN RIGHT FOOT (5) Anemia Current Visit: Yes Status: Acute Assessment & Plan: dilutional at this time, no old labs to compare to. will need workup as outpatient. Code(s): D64.9 - ANEMIA, UNSPECIFIED
[2017-11-19] MEDS: PATIENT OWN MEDICATION OP SCH ×3 (08:19→22:37)
[2017-11-19] MEDS: DELTASONE 20 MG PO SCH ×2 (09:16→22:37)
[2017-11-19] MEDS: Pepcid 20 MG VIAL IV SCH ×2 (09:18→22:37)
[2017-11-19] MEDS: ENOXAPARIN SODIUM SQ SCH (09:18)
[2017-11-19] MEDS: Flonase NASAL NS SCH (09:48)
[2017-11-19] MEDS: NORCO 5/325 MG PO PRN (23:23)
[2017-11-20 05:00] VITALS: O2SAT 97
[2017-11-20 05:29] LABS: BASOPHIL % 0.1 % (0.0-0.4); Basophil (Absolute #) 0.01 (0-0.4); Eosinophil (Absolute #) 0 (0-0.5); Granulocyte Absolute (ANC) 5.96 (1.4-6.9); Granulocytes % 88.2 % (36.0-66.0); Hematocrit 23.7 % (35-47); Hemoglobin 7.2 gm/dl (12.0-16.0); Lymphocyte (Absolute #) 0.48 (1.0-4.6); Lymphocytes % 7.1 % (24.0-44.0); Mean Cell Volume 96.3 fl (78-100); Mean Corpuscular Hgb Concent. 30.4 g/dl (32-36); Mean Platelet Volume 10.8 fl (6-9.5); Monocyte (Absolute #) 0.31 (0.0-1.3); Monocytes % 4.6 % (0.0-12.0); Platelet Count 218 K/mm3 (150-450); Red Blood Count 2.46 M/mm3 (4.1-5.4); Red Cell Distribution Width 13.7 % (11.5-14.0); White Blood Count 6.8 K/mm3 (4.0-10.5)
[2017-11-20 05:34] LABS: Mean Corpuscular Hemoglobin 29.2 pg (26-32)
[2017-11-20] MEDS: Sodium Chloride 0.9% 1000 ML 1,000 ML IV SCH (06:12)
[2017-11-20 06:16] LABS: ALBUMIN 2.7 g/dL (3.4-5.0); ANION GAP 14.2 MEQ/L (5-15); BILIRUBIN,TOTAL 0.1 mg/dL (0.2-1.0); Calcium 9.8 mg/dL (8.5-10.1); Carbon Dioxide 17.1 mEq/L (21-32); Creatinine 1 1.73 mg/dl (0.55-1.30); MAGNESIUM 1.3 mg/dL (1.8-2.4); Potassium 4.2 mEq/L (3.5-5.1); Total Protein 5.6 gm/dL (6.4-8.2)
[2017-11-20 07:23] LABS: Lymphocytes 9 % (24-44); Neutrophils 91 % (36.0-66.0); Total Cells Counted 100
[2017-11-20 07:24] LABS: Platelet Estimate NORMAL (NORMAL); Poikilocytosis 1+
[2017-11-20] MEDS: PATIENT OWN MEDICATION OP SCH (07:38)
--- NOTE | 2017-11-20 08:45 | PCM.DS ---
Discharge Summary Date of Admission: 11/14/17 21:37 Admitting Physician: ZO DESAI Primary Care Provider: ZULMA MONTANA Allergies Allergies Iodinated Contrast- Oral and IV Dye Allergy (Verified 11/14/17 17:57) Penicillins Allergy (Verified 11/14/17 17:57) Hospital Summary - Hospital Course Hospital Course: patient was admitted with a 5 day history of vomiting and diarrhea. she was found to have acute renal failure believed to be related to dehydration. she is tolerating po now, BUN/Cr have improved but remains 1.7. no previous labs to review so uncertain of her baseline. - Vitals & Intake/Output Vital Signs: Vital Signs Temperature 97.7 F 11/20/17 07:36 Pulse Rate 60 11/20/17 07:36 Respiratory Rate 18 11/20/17 07:36 Blood Pressure 136/63 11/20/17 07:36 O2 Sat by Pulse Oximetry 97 11/20/17 07:36 Intake & Output: Intake & Output 11/17/17 11/18/17 11/19/17 11/20/17 11:59 11:59 11:59 11:59 Intake Total 5773 4967 4724 4233 Output Total 1600 2600 3650 2450 Balance 4173 2367 1074 1783 - Lab Result Diagrams: 11/20/17 05:18 11/20/17 05:18 Lab Results-Last 24 Hrs: Lab Results-Last 24 Hours 11/20/17 11/20/17 Range/Units 05:18 05:18 WBC 6.8 (4.0-10.5) K/mm3 RBC 2.46 L (4.1-5.4) M/mm3 Hgb 7.2 L (12.0-16.0) gm/dl Hct 23.7 L (35-47) % MCV 96.3 (78-100) fl MCH 29.2 (26-32) pg MCHC 30.4 L (32-36) g/dl RDW 13.7 (11.5-14.0) % Plt Count 218 (150-450) K/mm3 MPV 10.8 H (6-9.5) fl Gran % 88.2 H (36.0-66.0) % Lymphocytes % 7.1 L (24.0-44.0) % Monocytes % 4.6 (0.0-12.0) % Eosinophils % 0.0 (0.00-5.0) % Basophils % 0.1 (0.0-0.4) % Segmented Neutrophils 91 H (36.0-66.0) % Lymphocytes (Manual) 9 L (24-44) % Basophils # 0.01 (0-0.4) Differential Comment ABNORMAL Platelet Estimate NORMAL (NORMAL) Poikilocytosis 1+ Sodium 143 (136-145) mEq/L Potassium 4.2 (3.5-5.1) mEq/L Chloride 116 H (98-107) mEq/L Carbon Dioxide 17.1 L (21-32) mEq/L Anion Gap 14.2 (5-15) MEQ/L BUN 37 H (9-20) mg/dL Creatinine 1.73 H (0.55-1.30) mg/dl Estimated GFR 31 ML/MIN Glucose 129 H (70-110) MG/DL Calcium 9.8 (8.5-10.1) mg/dL Magnesium 1.3 L (1.8-2.4) mg/dL Total Bilirubin 0.10 L (0.2-1.0) mg/dL AST 10 L (15-37) U/L ALT 17 (12-78) U/L Alkaline Phosphatase 43 L (46-116) U/L Serum Total Protein 5.6 L (6.4-8.2) gm/dL Albumin 2.7 L (3.4-5.0) g/dL Discharge Exam General Appearance: no apparent distress, alert, obese Skin Exam: normal color, warm, dry Eye Exam: PERRL, EOMI, eyes nml inspection Respiratory Exam: normal breath sounds, lungs clear, No respiratory distress Cardiovascular Exam: regular rate/rhythm, normal heart sounds Gastrointestinal/Abdomen Exam: soft, No tenderness, No mass Extremity Exam: normal inspection, normal range of motion Final Diagnosis/Problem List - Final Discharge Diagnosis/Problem (1) Acute renal failure (ARF) Current Visit: Yes Status: Acute Assessment & Plan: improved with hydration, will repeat labs in a week (2) Nausea and vomiting Current Visit: Yes Status: Acute (3) Diarrhea Current Visit: Yes Status: Acute (4) Foot pain, right Current Visit: Yes Status: Acute Assessment & Plan: on predisone for gout flare (5) Anemia Current Visit: Yes Status: Acute Assessment & Plan: will send home on ferrous sulfate, repeat cbc in a week - Discharge Disposition: Home, Self-Care Condition: Stable Prescriptions: New Ferrous Sulfate 325 mg [Feosol 325 mg] 325 mg PO BID #60 tablet Methylprednisolone [Medrol Dose Pack] 4 mg PO UD #1 pack Walker [Ultra-Light Rollator] 1 each MC UD #1 each Continue Latanoprost 1 drop INTRAOP HS Fluticasone Propionate [Flonase NASAL] 1 spray INTRANASAL DAILY Timolol Maleate/Dorzolam HCl [Cosopt Ophthalmic 10 ml] 1 drop INTRAOP BID Discontinued Lisinopril/Hydrochlorothiazide [Lisinopril-Hctz 20-12.5 mg Tab] 1 tab PO BID Furosemide [Furosemide] 40 mg PO DAILY Additional Instructions: stop lasix and lisinopril/hctz. drink plenty of fluids, have cbc/bmp drawn on order in 1 week. see me or Diana Montana in the office in 1 week Follow up with: ZULMA MONTANA NP [Primary Care Provider] - MUSHTAQ GANDHI [CONSULTING PHYSICIAN] - 1 Week
[2017-11-20] MEDS: ENOXAPARIN SODIUM SQ SCH (09:37)
[2017-11-20] MEDS: Pepcid 20 MG VIAL IV SCH (09:43)
[2017-11-20] MEDS: DELTASONE 20 MG PO SCH (09:51)
[2017-11-20] MEDS: Flonase NASAL NS SCH (09:52)
[2017-11-20 11:25] VITALS: BP 120/60; PULSE 69
== END 2017-11-20 12:00 | disposition home or self-care (01) | DRG 684 ==
LOC: ED 17:34 → MED SURG 21:37 → UNDOADMIN 21:37
PROVIDERS: ADMIT Family Medicine; ATTEND Family Medicine
DX: N17.9 Acute kidney failure, unspecified (principal); R11.2 Nausea with vomiting, unspecified; R19.7 Diarrhea, unspecified; I10 Essential (primary) hypertension; M79.671 Pain in right foot; M10.9 Gout, unspecified; D64.9 Anemia, unspecified; Z79.899 Other long term (current) drug therapy; E86.0 Dehydration
CPT/HCPCS: 36000; 36415; 73620; 74022; 80048; 80053; 81000; 82272; 83605; 83690; 83735; 84550; 85025; 85027; 87493; 87631; 93005; 96360; 96374; 99285; J1650; J2405; P9612; A9270-GY

== ENCOUNTER 2017-11-25 18:32 | Emergency (ER) | payer MEDICARE ==
[2017-11-25] MEDS ORDERED: Sodium Chloride 0.9% 1000 ML 1,000 ML IV STA (19:09)
[2017-11-25] MEDS ORDERED: Zofran 4 MG/2 ML VIAL IV ONE (19:09)
--- NOTE | 2017-11-25 19:20 | ERPHSYRPT ---
- History of Present Illness Time Seen by Provider: 11/25/17 19:06 Historian: patient Exam Limitations: no limitations Patient Subjective Stated Complaint: pt here for vomiting yesterday,loose stools ,pt was dx from [facility] last sat. for same this. no fever Triage Nursing Assessment: pt alert, arrived per wc, skin w/d/p. pt sob with excertion but states that is normal for her Physician History: 67 y/o female comes to the ER with complaints of multiple episodes of nausea, vomiting and diarrhea that started last night. Pt admits to some abdominal discomfort only with vomiting. Pt states that she is unable to keep anything down. No recent antibiotics. Pt denies any fever, chills, chest pain, shortness of breath, dizziness, constipation, bloody stools, or urinary symptoms. Pt was recently admitted for similar reasons. Timing/Duration: yesterday Activities at Onset: none Severity of Pain-Max: none Severity of Pain-Current: none Associated Symptoms: nausea, vomiting Previous symptoms: same symptoms as today Allergies/Adverse Reactions: Iodinated Contrast- Oral and IV Dye Allergy (Verified 11/25/17 18:57) Penicillins Allergy (Verified 11/25/17 18:57) Home Medications: Fluticasone Propionate [Flonase NASAL] 1 spray INTRANASAL DAILY 11/14/17 [ History] Latanoprost 1 drop INTRAOP HS 11/14/17 [History] Timolol Maleate/Dorzolam HCl [Cosopt Ophthalmic 10 ml] 1 drop INTRAOP BID 11/14/17 [History] Hx Tetanus, Diphtheria Vaccination/Date Given: Yes (unknown) Hx Influenza Vaccination/Date Given: Yes Hx Pneumococcal Vaccination/Date Given: No Immunizations Up to Date: Yes - Review of Systems Constitutional: Weakness, No Fever, No Chills Eyes: No Symptoms Ears, Nose, & Throat: No Symptoms Respiratory: No Cough, No Dyspnea Cardiac: No Chest Pain, No Edema, No Syncope Abdominal/Gastrointestinal: Nausea, Vomiting, Diarrhea, No Abdominal Pain, No Constipation, No Hematemesis, No Hematochezia, No Melena Genitourinary Symptoms: No Dysuria, No Frequency, No Hematuria Musculoskeletal: No Back Pain, No Neck Pain Skin: No Rash Neurological: No Dizziness, No Focal Weakness, No Sensory Changes Psychological: No Symptoms Endocrine: No Symptoms All Other Systems: Reviewed and Negative - Past Medical History Pertinent Past Medical History: Yes Neurological History: No Pertinent History ENT History: Glaucoma Cardiac History: Hypertension Respiratory History: No Pertinent History Endocrine Medical History: No Pertinent History Musculoskeletal History: No Pertinent History GI Medical History: No Pertinent History History: No Pertinent History Psycho-Social History: No Pertinent History Female Reproductive Disorders: No Pertinent History - Past Surgical History Past Surgical History: Yes Cardiac: No Pertinent History Respiratory: No Pertinent History Gastrointestinal: Appendectomy, Cholecystectomy Musculoskeletal: No Pertinent History Female Surgical History: Hysterectomy, Other Other Surgical History: exploratory surgery appendix leaking - Social History Smoking Status: Never smoker Exposure to second hand smoke: No Drug Use: none Patient Lives Alone: No - Female History Hx Last Menstrual Period: post Hx Now: No - Nursing Vital Signs Nursing Vital Signs: Initial Vital Signs Temperature 97.5 F 11/25/17 18:51 Pulse Rate 92 H 11/25/17 18:51 Respiratory Rate 18 11/25/17 18:51 Blood Pressure 141/87 11/25/17 18:51 O2 Sat by Pulse Oximetry 99 11/25/17 18:51 Pain Scale Pain Intensity 0 - Physical Exam General Appearance: no apparent distress, alert Eye Exam: PERRL/EOMI, eyes nml inspection Ears, Nose, Throat Exam: normal ENT inspection, pharynx normal, moist mucous membranes Neck Exam: normal inspection, non-tender, supple, full range of motion Respiratory Exam: normal breath sounds, lungs clear, No respiratory distress Cardiovascular Exam: regular rate/rhythm, normal heart sounds Gastrointestinal/Abdomen Exam: soft, normal bowel sounds, No tenderness, No distention, No mass Back Exam: normal inspection, normal range of motion, No CVA tenderness, No vertebral tenderness Extremity Exam: normal inspection, normal range of motion, pelvis stable Neurologic Exam: alert, oriented x 3, cooperative, normal mood/affect, nml cerebellar function, sensation nml, No motor deficits Skin Exam: normal color, warm, dry SpO2 Interpretation: normal SpO2: 99 Oxygen Delivery: Room Air - Course Nursing assessment & vital signs reviewed: Yes Ordered Tests: Active Orders 24 hr Category Date Time Status IV Insertion STAT Care 11/25/17 19:09 Active NPO (ED) STAT Care 11/25/17 19:09 Active cath [Cath for Specimen-Straight] STAT Care 11/25/17 20:29 Active ABDOMEN AND PELVIS W/0 CONTRAS [CT] Stat Exams 11/25/17 19:34 Taken AMYLASE Stat Lab 11/25/17 19:27 Completed CBC W DIFF Stat Lab 11/25/17 19:27 Completed CMP Stat Lab 11/25/17 19:27 Completed CULTURE,URINE Stat Lab 11/25/17 20:10 Received LIPASE Stat Lab 11/25/17 19:27 Completed MAG [MAGNESIUM] Stat Lab 11/25/17 19:27 Completed UA W/ MICROSCOPIC Stat Lab 11/25/17 20:10 Completed Medication Summary Generic Name Dose Route Start Last Admin Trade Name Freq PRN Reason Stop Dose Admin Magnesium Sulfate/Dextrose 100 mls @ 100 mls/hr 11/25/17 20:30 11/25/17 20:39 Magnesium 1 Gm / 100 Ml D5w IV 11/25/17 22:29 100 mls/hr Q1H RENO Administration Discontinued Medications Generic Name Dose Route Start Last Admin Trade Name Freq PRN Reason Stop Dose Admin Sodium Chloride 1,000 mls @ 999 mls/hr 11/25/17 19:09 11/25/17 19:31 Sodium Chloride 0.9% 1000 Ml IV 11/25/17 20:09 999 mls/hr .Q1H1M STA Administration Sodium Chloride Confirm 11/25/17 19:28 Sodium Chloride 0.9% 1000 Ml Administered 11/25/17 19:29 Dose 1,000 mls @ ud .ROUTE .STK-MED ONE Ondansetron HCl 4 mg 11/25/17 19:09 11/25/17 19:31 Zofran 4 Mg/2 Ml Vial IV 11/25/17 19:10 4 mg STAT ONE Administration Ondansetron HCl Confirm 11/25/17 19:28 Zofran 4 Mg/2 Ml Vial Administered 11/25/17 19:29 Dose 4 mg .ROUTE .STK-MED ONE Lab/Rad Data: Laboratory Result Diagrams 11/25/17 19:27 11/25/17 19:27 Laboratory Results 11/25/17 11/25/17 11/25/17 Range/Units 20:10 19:27 19:27 WBC (4.0-10.5) K/mm3 RBC (4.1-5.4) M/mm3 Hgb (12.0-16.0) gm/dl Hct (35-47) % MCV (78-100) fl MCH (26-32) pg MCHC (32-36) g/dl RDW (11.5-14.0) % Plt Count (150-450) K/mm3 MPV (6-9.5) fl Gran % (36.0-66.0) % Lymphocytes % (24.0-44.0) % Monocytes % (0.0-12.0) % Eosinophils % (0.00-5.0) % Basophils % (0.0-0.4) % Basophils # (0-0.4) Sodium 144 (136-145) mEq/L Potassium 3.6 (3.5-5.1) mEq/L Chloride 113 H (98-107) mEq/L Carbon Dioxide 22.0 (21-32) mEq/L Anion Gap 12.4 (5-15) MEQ/L BUN 18 (9-20) mg/dL Creatinine 1.72 H (0.55-1.30) mg/dl Estimated GFR 32 ML/MIN Glucose 122 H (70-110) MG/DL Calcium 10.2 H (8.5-10.1) mg/dL Magnesium 1.4 L (1.8-2.4) mg/dL Total Bilirubin 0.70 (0.2-1.0) mg/dL AST 17 (15-37) U/L ALT 49 (12-78) U/L Alkaline Phosphatase 61 (46-116) U/L Serum Total Protein 6.4 (6.4-8.2) gm/dL Albumin 3.2 L (3.4-5.0) g/dL Amylase 22 L (25-115) U/L Lipase 135 (73-393) U/L Ur Collection Type CATH Urine Color YELLOW (YELLOW) Urine Appearance CLOUDY (CLEAR) Urine pH 5.0 (5-6) Ur Specific [place] 1.020 (1.005-1.025) Urine Protein 30 (Negative) Urine Ketones NEGATIVE (NEGATIVE) Urine Blood TRACE NON-HEM (0-5) Onofre/ul Urine Nitrite POSITIVE (NEGATIVE) Urine Bilirubin NEGATIVE (NEGATIVE) Urine Urobilinogen NORMAL (0-1) mg/dL Ur Leukocyte Esterase 2+ (NEGATIVE) Urine Microscopic WBC 50-100 (0-5) /HPF Ur Epithelial Cells FEW (FEW) /HPF Urine Bacteria MODERATE (NEGATIVE) /HPF Urine Culture Reflexed YES (NO) Urine Glucose NEGATIVE (NEGATIVE) mg/dL Specimen Received 11-25-17 11/25/17 Range/Units 19:27 WBC 9.8 (4.0-10.5) K/mm3 RBC 2.95 L (4.1-5.4) M/mm3 Hgb 8.8 L (12.0-16.0) gm/dl Hct 27.7 L (35-47) % MCV 93.9 (78-100) fl MCH 29.8 (26-32) pg MCHC 31.8 L (32-36) g/dl RDW 13.6 (11.5-14.0) % Plt Count 228 (150-450) K/mm3 MPV 11.3 H (6-9.5) fl Gran % 86.5 H (36.0-66.0) % Lymphocytes % 4.3 L (24.0-44.0) % Monocytes % 8.1 (0.0-12.0) % Eosinophils % 1.0 (0.00-5.0) % Basophils % 0.1 (0.0-0.4) % Basophils # 0.01 (0-0.4) Sodium (136-145) mEq/L Potassium (3.5-5.1) mEq/L Chloride (98-107) mEq/L Carbon Dioxide (21-32) mEq/L Anion Gap (5-15) MEQ/L BUN (9-20) mg/dL Creatinine (0.55-1.30) mg/dl Estimated GFR ML/MIN Glucose (70-110) MG/DL Calcium (8.5-10.1) mg/dL Magnesium (1.8-2.4) mg/dL Total Bilirubin (0.2-1.0) mg/dL AST (15-37) U/L ALT (12-78) U/L Alkaline Phosphatase (46-116) U/L Serum Total Protein (6.4-8.2) gm/dL Albumin (3.4-5.0) g/dL Amylase (25-115) U/L Lipase (73-393) U/L Ur Collection Type Urine Color (YELLOW) Urine Appearance (CLEAR) Urine pH (5-6) Ur Specific [place] (1.005-1.025) Urine Protein (Negative) Urine Ketones (NEGATIVE) Urine Blood (0-5) Onofre/ul Urine Nitrite (NEGATIVE) Urine Bilirubin (NEGATIVE) Urine Urobilinogen (0-1) mg/dL Ur Leukocyte Esterase (NEGATIVE) Urine Microscopic WBC (0-5) /HPF Ur Epithelial Cells (FEW) /HPF Urine Bacteria (NEGATIVE) /HPF Urine Culture Reflexed (NO) Urine Glucose (NEGATIVE) mg/dL Specimen Received - Progress Progress: improved Progress Note: 11/25/17 21:07 Pt feels better after receiving NS fluids and zofran. Pt has a repeat Hgb of 8.8 which is better from a Hgb of 7.2 from last week. Pt will need a colonoscopy as an outpatient and will be giving a referral to GI. Pt also has an elevated BUN/Cr and was given fluids for dehydration. Pt has a low Mg of 1.4 and was given replacement magnesium. Pt has a UTI and will be given a dose of rocephin as well as macrobid as an outpatient. The CT scan abd/pelvis shows minimal sigmoid diverticulosis but no other acute findings. Pt will also be given a script for zofran and imodium for likely gastroenteritis. - Departure Time of Disposition: 21:11 Departure Disposition: Home Clinical Impression: Gastroenteritis UTI (urinary tract infection) Qualifiers: Urinary tract infection type: acute cystitis Hematuria presence: without hematuria Qualified Code(s): N30.00 - Acute cystitis without hematuria Anemia Qualifiers: Anemia type: unspecified type Qualified Code(s): D64.9 - Anemia, unspecified Condition: Stable Critical Care Time: No Referrals: ZULMA LOGAN NP [Primary Care Provider] - BARBRA COE MD [NON-STAFF PHY W/O PRIVILEGES] - Instructions: Viral Gastroenteritis, Adult (DC), Urinary Tract Infection, Adult (DC), Normocytic Normochromic Anemia (DC) Additional Instructions: Follow up with your primary care doctor and gastroenterology in the next 1-2 days. Return to the ER if you should have worsening nausea, vomiting, diarrhea or abdominal pain. Prescriptions: Loperamide HCl 2 mg [Imodium 2 mg] 2 mg PO QID PRN #20 capsule PRN Reason: Diarrhea Nitrofurantoin Macro 100 mg [Macrobid 100MG Capsule] 100 mg PO BID #14 cap Ondansetron [Zofran Odt] 4 mg PO QID PRN #20 tab.rapdis PRN Reason: Nausea/Vomiting
[2017-11-25] MEDS ORDERED: Zofran 4 MG/2 ML VIAL ONE (19:28)
[2017-11-25] MEDS ORDERED: Sodium Chloride 0.9% 1000 ML 1,000 ML ONE (19:28)
[2017-11-25 19:30] LABS: BASOPHIL % 0.1 % (0.0-0.4); Basophil (Absolute #) 0.01 (0-0.4); Granulocyte Absolute (ANC) 8.51 (1.4-6.9); Granulocytes % 86.5 % (36.0-66.0); Hematocrit 27.7 % (35-47); Hemoglobin 8.8 gm/dl (12.0-16.0); Lymphocyte (Absolute #) 0.42 (1.0-4.6); Lymphocytes % 4.3 % (24.0-44.0); Mean Cell Volume 93.9 fl (78-100); Mean Corpuscular Hemoglobin 29.8 pg (26-32); Mean Corpuscular Hgb Concent. 31.8 g/dl (32-36); Mean Platelet Volume 11.3 fl (6-9.5); Monocytes % 8.1 % (0.0-12.0); Platelet Count 228 K/mm3 (150-450); Red Blood Count 2.95 M/mm3 (4.1-5.4); Red Cell Distribution Width 13.6 % (11.5-14.0); White Blood Count 9.8 K/mm3 (4.0-10.5)
[2017-11-25 19:57] LABS: ALBUMIN 3.2 g/dL (3.4-5.0); ANION GAP 12.4 MEQ/L (5-15); BILIRUBIN,TOTAL 0.7 mg/dL (0.2-1.0); Calcium 10.2 mg/dL (8.5-10.1); Creatinine 1 1.72 mg/dl (0.55-1.30); Potassium 3.6 mEq/L (3.5-5.1); Total Protein 6.4 gm/dL (6.4-8.2)
[2017-11-25] MEDS ORDERED: Magnesium 1 Gm / 100 Ml D5W*** 100 ML IV ONE ×2 (20:35→21:30)
[2017-11-25] MEDS: Magnesium 1 Gm / 100 Ml D5W*** 100 ML IV SCH ×2 (20:39→21:31)
[2017-11-25 20:45] LABS: Appearance CLOUDY (CLEAR); Leukocyte Esterase 2+ (NEGATIVE)
[2017-11-25 20:46] LABS: Bilirubin NEGATIVE (NEGATIVE); Blood TRACE NON-HEM Ery/ul (0-5); Glucose NEGATIVE (NEGATIVE); Ketones NEGATIVE (NEGATIVE); Nitrite POSITIVE (NEGATIVE); Protein,Urine Dip 30 (Negative); Urobilinogen NORMAL mg/dL (0-1); WBC 50-100 /HPF (0-5)
[2017-11-25 20:47] LABS: Bacteria MODERATE /HPF (NEGATIVE); Epithelial Cells FEW /HPF (FEW)
[2017-11-25] MEDS ORDERED: ROCEPHIN 1 Gm-D5w 50 ml Bag** 1 G/50 ML IVPB IV STA (21:06)
[2017-11-25] MEDS ORDERED: ROCEPHIN 1 Gm-D5w 50 ml Bag** 1 G/50 ML IVPB IV ONE (21:30)
[2017-11-25 21:44] VITALS: BP 131/62; PULSE 70; O2SAT 98
--- NOTE | 2017-11-26 08:54 | XRAY ---
Indication: Upper abdominal pain. Vomiting and diarrhea. Low hemoglobin. Multiple contiguous axial images obtained through the abdomen and pelvis without contrast as ordered. Comparison: None Lung bases demonstrates minimal bibasilar fibrosis/scarring and small left effusion. Heart is not enlarged. Small hiatal hernia. Noncontrasted stomach and bowel loops appear nonobstructed. Minimal descending/sigmoid diverticulosis. No free fluid/air. Previous reported appendectomy, hysterectomy, and cholecystectomy. Mild fatty liver. There is a 3.4 cm right adrenal adenoma. 4.4 cm right lower pole exophytic renal cyst. Remaining liver, pancreas, spleen, adrenal glands, kidneys, ureters, and bladder appear unremarkable for noncontrast exam. Minimal aortoiliac calcifications without AAA. Osseous structures demonstrates lumbosacral junction degenerative disc space loss with endplate spurring/sclerosis. Also bilateral L5 spondylolysis with 7 mm spondylolisthesis. Impression: 1. No acute intra-abdominal/pelvic abnormalities on this noncontrast exam. 2. Incidental fatty liver, small hiatal hernia, right adrenal adenoma, right renal cyst, and L5 spondylolysis with grade 1-2 spondylolisthesis. 3. Small nonspecific left effusion. CT DI 28.13
== END 2017-11-25 22:45 | disposition home or self-care (01) ==
LOC: ED 18:32
DX: N30.00 Acute cystitis without hematuria (principal); D64.9 Anemia, unspecified; I10 Essential (primary) hypertension; Z79.899 Other long term (current) drug therapy
CPT/HCPCS: 36000; 36415; 74176; 80053; 81000; 82150; 83690; 83735; 85025; 87077; 87086; 87186; 96360; 96361; 96365; 96366; 96374; 99284; J0696; J2405; J3475; P9612